=== PATIENT | female | born 1985 | race Caucasian/White ===

== ENCOUNTER 2019-04-30 16:05 | Inpatient (IN) ==
[2019-04-30] MEDS ORDERED: PULMICORT INH ONE (16:18)
[2019-04-30] MEDS ORDERED: DUONEB (A & A) INH ONE (16:18)
[2019-04-30] MEDS ORDERED: ROBITUSSIN-AC PO ONE (16:19)
[2019-04-30 16:41] LABS: BE 3.6 mmoll (-3.0-3.0); BLOOD TYPE ARTERIAL; HCO3-(ACT) 27.7 mmoll (20.0-26.0); METHB 1.2 % (0.0-1.5); O2(CT) 16.9 mL/dL (15.0-23.0); O2HB 94.9 % (95.0-99.0); PCO2(98.6) 28 mmHg (35-45); PO2(98.6) 74 mmHg (60-100); SAMPLE BLOOD; SAO2 97.8 % (95.0-100.0); THB 12.6 g/dL (11.5-17.4)
[2019-04-30 16:43] LABS: ALLEN TEST NO; MODALITY ROOM AIR
[2019-04-30 16:51] LABS: pH(98.6) 7.56 (7.35-7.45)
--- NOTE | 2019-04-30 16:54 | Diag Imaging Result Doc PS360 ---
EXAM: CHEST-PORTABLE HISTORY: cough TECHNIQUE: Single view COMPARISON: 04/27/2019 FINDINGS: The lungs are well expanded. The heart is not enlarged. The vessels are not distended. There continue to be increased interstitial markings throughout both lungs. No effusion identified. IMPRESSION: Persistent pneumonia Electronically signed by Rich Mortensen 04/30/2019 4:52 PM
[2019-04-30 17:16] LABS: BASO# 0.09 X1000 (0.0-0.2); BASO% 1.6 % (0.0-0.8); EOS# 0.01 X1000 (0.0-0.7); EOS% 0.2 % (0.0-10.0); HEMATOCRIT 38.3 % (37.0-47.0); HEMOGLOBIN 11.9 g/dL (12.0-16.0); IMM GRAN# 0.01 X1000 (0.0-0.04); IMM GRAN% 0.2 % (0.0-0.5); LYMPH# 1.79 X1000 (1.2-3.4); LYMPH% 31.5 % (20.5-51.1); MCH 23.9 PG (27-31); MCHC 31.1 g/dL (33-37); MCV 77.1 FL (81-99); MONO# 0.45 X1000 (0.11-0.59); MONO% 7.9 % (1.7-9.3); MPV 10.1 FL (7.4-10.4); NEUT# 3.33 X1000 (1.4-6.5); NEUT% 58.6 % (42.2-75.2); PLT 331 X1000 (130-400); RBC 4.97 XMIL (4.2-5.4); RDW 15.7 % (11.5-14.5); WBC 5.68 X1000 (4.8-10.8)
[2019-04-30 17:19] LABS: AGAP 13; ALBUMIN 3.6 g/dL (3.5-5.0); ALKALINE PHOSPHATASE 62 U/L (32-104); BUN 13 mg/dL (8-22); CALCIUM 8.8 mg/dL (8.8-10.2); CHLORIDE 105 mmol/L (98-107); COSMO 284; CREATININE 0.6 mg/dL (0.5-0.9); ESTIMATED GFR > 60; GLUCOSE 142 mg/dL (70-104); GOT 189 U/L (10-30); GPT 98 U/L (10-36); SODIUM 141 mmol/L (136-145); TCO2 23 mmol/L (25-35)
[2019-04-30] MEDS ORDERED: ZITHROMAX PO ONE (18:26)
[2019-04-30] MEDS ORDERED: ROCEPHIN 1 GM in NS 50 ML IV ONE (18:26)
--- NOTE | 2019-04-30 18:34 | PROVIDER DOCUMENTATION ---
This chart was entered by Joya Campo Scribe, acting as scribe for Pamela Perez MD. HPI-Respiratory General - General Chief Complaint: Shortness of Breath Stated Complaint: RETURN / REVISIT Time Seen by Provider: 04/30/19 16:15 Source: patient Allergies/Adverse Reactions: Patient Allergies Allergy/AdvReac Type Severity Reaction Status Date / Time wool Allergy RASH Verified 09/26/17 17:32 Home Medications: Home Medication List Medication Instructions Recorded Confirmed Last Taken Type NK [No Home Medications] 04/30/19 04/30/19 Unknown History - History of Present Illness-Resp Nature of Presenting Problem: Patient is a 34 year old female who presents with shortness of breath. States cough with shortness of breath. Reports symptoms started 1 weeks ago. States being diagnosed with double pneumonia 2 days ago. Denies fever. Quality of Pain: reports: tightness Severity in ED: reports: mild Onset/Duration: reports: 1 week ago Timing: reports: still present Cough Quality/Degree: reports: moderate Episode Frequency: frequent episodes Current Respiratory Medication Therapy: Initiated see nurses note Associated Symptoms: reports: cough, shortness of breath Similar Symptoms Previously?: Yes Recently seen or treated by another doctor?: Yes Review of Systems - Adult - REVIEW OF SYSTEMS - ADULT ROS:: limited per condition Constitutional: reports: no symptoms reported Eyes: reports: no symptoms reported Ears, Nose, Mouth & Throat: reports: no symptoms reported Cardiovascular: reports: no symptoms reported Respiratory: reports: see HPI, cough, shortness of breath. denies: wheezing Gastrointestinal: reports: no symptoms reported Genitourinary: reports: no symptoms reported Musculoskeletal: reports: no symptoms reported Integumentary: reports: no symptoms reported Neurological: reports: no symptoms reported Psychiatric: reports: no symptoms reported Endocrine: reports: no symptoms reported Hematologic/Lymphatic: reports: no symptoms reported Allergic/Immunologic: reports: no symptoms reported All Other Systems: Reviewed and Negative Past History - Adult - PAST MEDICAL HISTORY-ADULT Review of Records: reports: Old Records Reviewed, Nursing Assessment Review, Medications Reviewed, Social history reviewed & non-contributory. Major Childhood Illnesses: reports: denies history Cardiovascular: reports: denies history Respiratory: reports: denies history Gastrointestinal: reports: denies history Obstetrical/Gynecological: reports: denies history Genitourinary: reports: denies history Musculoskeletal: reports: denies history Neurological: reports: headaches/migraines Psychiatric: reports: depression Endocrine/Immune: reports: denies history Other Conditions: reports: denies history - PRIOR SURGERIES/PROCEDURES Surgical/Procedure History: reports: reviewed, not pertinent, BTL - PRIOR HOSPITALIZATIONS Prior Hospitalizations: reports: none - IMMUNIZATION STATUS Childhood Immunizations: See Nurse Assessment Flu Vaccine: See Nurse Assessment - FAMILY HISTORY Family History: reviewed, not pertinent - SOCIAL HISTORY Smoking: cigarettes, less than 1 pack/day Provider spent 3-5 mins advising pt. on dangers of tobacco.: Discussed manners to quit use, and f/u contacts for add'l counseling. Substance Use: denies Physical Exam-General - PHYSICAL EXAM-ADULT Initial Vital Signs Reviewed: Yes - CONSTITUTIONAL General Appearance: alert, no apparent distress, anxious, other (tearful). negative: lethargic - RESPIRATORY Respiratory: chest non-tender, wheezing (bilaterally), increased rate. negative: respiratory distress - CARDIOVASCULAR Cardiovascular: regular rate, rhythm. negative: tachycardia, systolic murmur - GASTROINTESTINAL (ABDOMEN) Abdominal Exam: normal bowel sounds, non tender, soft. negative: guarding - MUSCULOSKELETAL Extremity: non-tender, normal inspection. negative: erythema - SKIN Integumentary: normal color, normal turgor, warm/dry. negative: cyanosis - NEUROLOGIC Neurologic: grossly normal. negative: aphasia, facial droop - PSYCHIATRIC Psych/Mental Status: anxious, tearful. negative: normal mood/affect Progress - PLAN OF CARE/RESULTS Progress/Plan/Lab Results: Vital Signs - 8 hr 04/30/19 16:09 04/30/19 17:01 04/30/19 18:00 Temperature 98.1 F 98 F Pulse Rate 95 H 96 H 113 H Respiratory Rate 20 22 20 Blood Pressure 150/86 131/108 O2 Sat by Pulse Oximetry 94 L 95 Laboratory Results - last 24 hr 04/30/19 04/30/19 04/30/19 16:30 16:50 16:50 WBC 5.68 RBC 4.97 Hgb 11.9 L Hct 38.3 MCV 77.1 L MCH 23.9 L MCHC 31.1 L RDW Std Deviation 15.7 H Plt Count 331 MPV 10.1 Immature Gran % (Auto) 0.2 Neut % (Auto) 58.6 Lymph % (Auto) 31.5 Gila % (Auto) 7.9 Eos % (Auto) 0.2 Baso % (Auto) 1.6 H Immature Gran # (Auto) 0.01 Neut # (Auto) 3.33 Lymph # (Auto) 1.79 Gila # (Auto) 0.45 Eos # (Auto) 0.01 Baso # (Auto) 0.09 Specimen Type ARTERIAL Sample Site R BRACHIAL pH 7.56 H* pCO2 28 L pO2 74 HCO3 27.7 H Base Excess 3.6 H Oxyhemoglobin 94.9 L ABG O2 Sat (Calculated) 16.9 ABG O2 Saturation 97.8 ABG Carboxyhemoglobin 1.80 ABG Methemoglobin 1.2 Louis Test NO A-a O2 Difference 41.0 Total Hemoglobin 12.6 Lactate 1.60 Blood Gas Modality ROOM AIR FiO2 % 21.0 Sodium 141 Potassium 4.0 Chloride 105 Carbon Dioxide 23 L Anion Gap 13 BUN 13 Creatinine 0.6 Estimated GFR/1.73 m2 > 60 BUN/Creatinine Ratio 22 Glucose 142 H Calculated Osmolality 284 Calcium 8.8 Total Bilirubin 0.30 AST 189 H ALT 98 H Alkaline Phosphatase 62 Total Protein 7.0 Albumin 3.6 Globulin 3.0 Albumin/Globulin Ratio 1.0 Orders Category Date Time Status Saline Loc NOW Care 04/30/19 16:19 Active CHEST-PORTABLE [RAD] Stat Exams 04/30/19 16:19 Completed ABG [RESP] Routine Lab 04/30/19 16:30 Completed BLOOD CULTURE [BLDCUL] Stat Lab 04/30/19 16:55 Ordered CBC WITH DIFF [HEME] Stat Lab 04/30/19 16:50 Completed COMPREHENSIVE METABOLIC PANEL [CHEM] Stat Lab 04/30/19 16:50 Completed Albuterol 2.5MG/Ipratrop 0.5MG [Duoneb (A & A)] Med 04/30/19 16:18 Discontin ued 3 ml INH NOW ONE Azithromycin [Zithromax] Med 04/30/19 18:26 Discontinued 500 mg PO NOW ONE Budesonide [Pulmicort] Med 04/30/19 16:18 Discontinued 0.5 mg INH NOW ONE CefTRIAXONE [Rocephin] 1 gm Med 04/30/19 18:26 Active 0.9% Sodium Chloride Inj [Ns] 50 ml IV NOW Guaifenesin/Codeine [Robitussin-AC] Med 04/30/19 16:19 Discontinued 10 ml PO NOW ONE Aerosol Treatments Routine Oth 04/30/19 16:18 Completed Aerosol Treatments Stat Oth 04/30/19 16:18 Completed Pulse Oximetry Stat Oth 04/30/19 16:19 Completed Result Diagrams: 04/30/19 16:50 04/30/19 16:50 - CONSULTS/PCP/HOSPITALIST Notification #1 *Consult/PCP/Hospitalist*: Dr Serna Time Discussed: 18:35 Consult Disposition: Admit Departure - Departure Date of Disposition Decision: 04/30/19 Time of Disposition Decision: 18:31 DIAGNOSIS: Pneumonia Qualifiers: Pneumonia type: due to unspecified organism Laterality: bilateral Lung location: unspecified part of lung Qualified Code(s): J18.9 - Pneumonia, unspecified organism Disposition: ADMITTED INPATIENT 09 Certified Medical Emergency: Emergent Condition: Good Referrals and Follow-Ups: None,PCP [Primary Care Provider] - - Critical Care Note This patient required my direct & personal management of CC.: No Attestation - Physician/ PRISCILLA Attestation Patient care was provided by Advanced Practice Provider:: No The physician spent face to face time with patient:: Yes Advanced Practice Provider documentation review:: Supervising physician onsite and consulted in the evaluation and care of this patient. The physician did have a face to face encounter with the patient. This chart was documented by the indicated scribe, (Joya Campo Scribe) and accurately reflects the services I performed and decisions made by me, Pamela Perez MD, as attested by the provider's signature.
[2019-04-30] MEDS ORDERED: ROCEPHIN 1 GM in NS 50 ML IV SCH (18:45)
[2019-04-30] MEDS ORDERED: DUONEB (A & A) INH PRN (18:46)
[2019-04-30] MEDS ORDERED: ZOFRAN IV PRN (18:46)
[2019-04-30] MEDS ORDERED: TYLENOL PO PRN (18:46)
[2019-04-30] MEDS ORDERED: NS 1,000 ML IV SCH (19:00)
[2019-04-30] MEDS ORDERED: NICODERM PATCH TD SCH (19:15)
[2019-04-30 21:19] VITALS: BP 147/90
--- NOTE | 2019-04-30 22:02 | HISTORY AND PHYSICAL ---
ADDENDUM: The patient is seen and examined by myself. Full note dictated and discussed with nurse practitioner. HISTORY OF PRESENT ILLNESS: The patient presented to the hospital with increased cough, congestion, and shortness of breath. Notes she has been sick for approximately a week. She has been weak and fatigued during this time. Thanks that she had the flu start with but still having low-grade fevers, cough. She was seen yesterday in the ER, and was diagnosed with pneumonia. Symptoms continued to worsen. She re-presented today since she was not getting any better. We are going to admit her to the hospital. She currently is having some mild wheezing on exam. We will place her on antibiotics oxygen breathing treatments and will follow up. cc: Perez Serna MD
--- NOTE | 2019-04-30 22:06 | HISTORY AND PHYSICAL ---
PRIMARY CARE PROVIDER: No one. CHIEF COMPLAINT: Shortness of breath. HISTORY OF PRESENT ILLNESS: Ms. Scarlet Ely is a 34-year-old female with no medical history, other than she is a smoker. States that for the past week she has had subjective fevers along with shortness of breath, coughing up clear phlegm, along with wheezing. She has also had some dizziness with it, and it was the shortness of breath that brought her in. She does state that she has come in a couple times and been tested for the fluoroscopic, and it was negative. Imaging reveals that she does have pneumonia. She has a little bit of a respiratory alkalosis, but she is hyperventilating just a little bit from being emotionally upset over her diagnosis. We will admit her to the medical floor and give her some IV antibiotics. PAST MEDICAL HISTORY: Morbid obesity with BMI of 44.4. PAST SURGICAL HISTORY: Left fallopian tube, she states, was removed. SOCIAL HISTORY: Less than a bidv-bxnc-fys-day smoker since age of 15. Denies alcohol or illicit drug use. She is . No kids. Works at [employer] with her twin sister in [place]. FAMILY HISTORY: Mother, diabetes and COPD. Father, no medical conditions. ALLERGIES: No known drug allergies. However, she has an allergy to wool and to Era detergent. HOME MEDICATIONS: 1. She did originally have antibiotics prescribed, Keflex 500 mg p.o. t.i.d. 2. Medrol Dosepak. 3. Azithromycin 250 mg p.o. daily. REVIEW OF SYSTEMS: Fourteen-point review of systems is complete, and all were negative for those mentioned above in the HPI. She did state that she has had menses for 2 weeks. PHYSICAL EXAMINATION: VITAL SIGNS: Temperature 98, heart rate 113, respiratory rate 20, blood pressure 131/108, O2 saturation 95% on room air. She is 5 feet 6 inches tall, 275 pounds. GENERAL: Ms. Scarlet Ely is a 34-year-old female. She is emotionally upset, but is able answer all questions appropriately. HEENT: Atraumatic, normocephalic. Pupils equal, round, and reactive to light. Extraocular movements intact. Mucous membranes are moist. NECK: Trachea midline. CARDIOVASCULAR: S1, S2. Tachycardic rate and rhythm. No rubs, gallops, murmurs. No lower extremity edema. Has +2 dorsalis and radial pulses. Negative JVD or carotid bruits. PULMONARY: Mild expiratory wheezes noted throughout anteriorly. No accessory muscle use or work of breathing noted. GI: Soft, nontender, nondistended. Positive bowel sounds x4. EXTREMITIES: Moves all extremities equally. Full range of motion. NEUROLOGIC: A and O x3. Follows commands. Sensory is intact. SKIN: Warm, dry, intact. LABORATORY DATA: White blood cells 5000, hemoglobin 11, hematocrit 38, platelet count 331. ABG: pH of 7.56, pCO2 of 28, pO2 of 74, bicarb of 27, base excess of 3.6, saturation 95%. Lactate 1.6. This is on room air. Sodium 141, potassium 4.0, BUN 13, creatinine 0.6, glucose 142, calcium 8.8. Bilirubin 0.30, AST 189, ALT 98, albumin 3.6. IMAGING: Chest x-ray: Persistent pneumonia throughout both lungs. ASSESSMENT AND PLAN: 1. Community-acquired pneumonia with subjective fevers reported. She will be started on antibiotics, azithromycin and Rocephin, and for the wheezing, she will have albuterol/Atrovent nebulizers every 4 hours p.r.n. 2. Morbid obesity. Body mass index is 44.4. 3. Complains of heavy menses for 2 weeks. Currently, hemoglobin and hematocrit are pretty stable at 11 and 38. 4. Respiratory alkalosis, likely due to her anxiety and being emotionally upset over the diagnosis of pneumonia. 5. Deep venous thrombosis prophylaxis. Sequential compression devices. 6. Tobacco abuse. Cessation discussed. She is requesting a nicotine patch. We will add that. Dictated by ESTEVAN Griffith for Perez Serna MD cc: ESTEVAN Griffith MD
[2019-05-01] MEDS ORDERED: ZITHROMAX PO SCH (09:00)
== END 2019-04-30 22:00 | disposition left against medical advice (07) | DRG 194 ==
LOC: P.ED 16:05 → P.MEDSURG 21:17
PROVIDERS: ATTEND Family Medicine